=== PATIENT | female | born 1975 | race Caucasian/White ===

== ENCOUNTER 2017-11-23 02:14 | Emergency (ER) | payer MEDICARE ==
[~2017-11-23] VITALS: Ht 165.1 cm; Wt 68.7 kg
[2017-11-23] MEDS ORDERED: LORA0.5T PO (02:43)
[2017-11-23] MEDS ORDERED: PRAZ2CAP2 PO (02:43)
[2017-11-23] MEDS ORDERED: TRAZ150T62 PO (02:43)
[2017-11-23] MEDS ORDERED: HYDR200T72 PO (02:43)
[2017-11-23 03:00] LABS: HCG UR SG 1.035 (1.003-1.030)
[2017-11-23 03:04] LABS: CULTURE INDICATED? YES; MICROSCOPIC INDICATED
[2017-11-23 03:30] VITALS: BP 120/75
== END 2017-11-23 04:00 | disposition home or self-care (01) ==
LOC: ED 03:50
DX: N30.00 Acute cystitis without hematuria (principal)
CPT/HCPCS: 81001; 81025; 87086; 99284

== ENCOUNTER 2017-11-29 18:42 | Emergency (ER) | payer MEDICARE ==
[~2017-11-29] VITALS: Ht 162.6 cm; Wt 71.9 kg
[~2017-11-29 18:42] MED LIST: HYDR200T72 PO; LORA0.5T PO; PRAZ2CAP2 PO; TRAZ150T62 PO
[2017-11-29 19:41] LABS: MICROSCOPIC INDICATED
[2017-11-29 19:42] LABS: CULTURE INDICATED? YES
[2017-11-29 19:42] LABS: BASOPHILS # (AUTO) 0.04 x10^3/uL (0-0.1); BASOPHILS % (AUTO) 1 % (0-1); EOSINOPHILS % (AUTO) 0 % (1-7); LYMPHOCYTES # (AUTO) 2.26 x10^3/uL (1-3.4); LYMPHOCYTES % (AUTO) 24 % (22-44); MD NO; MEAN CORPUSCULAR HEMOGLOBIN 34.5 pg (27.0-34.8); MEAN CORPUSCULAR HGB CONC 34.2 g/dL (32.4-35.8); MEAN CORPUSCULAR VOLUME 100.8 fL (80-100); MEAN PLATELET VOLUME 9.1 fL (7.4-10.4); MONOCYTES % (AUTO) 5 % (2-9); NEUTROPHILS # (AUTO) 6.64 x10^3/uL (1.8-6.8); NEUTROPHILS % (AUTO) 70 % (42-75); PLATELET COUNT 324 x10^3/uL (130-400); RED BLOOD COUNT 3.73 x10^6/uL (3.82-5.3); RED CELL DISTRIBUTION WIDTH 14.1 % (9.6-15.2)
[2017-11-29 19:53] LABS: ALANINE AMINOTRANSFERASE 31 U/L (12-78); ALBUMIN 3.4 g/dL (3.4-5.0); ANION GAP 6 mmol/L (5-15); CALCIUM 8.7 mg/dL (8.5-10.1); CHLORIDE 115 mmol/L (98-107); CREATININE 0.96 mg/dL (0.55-1.02)
[2017-11-29 19:55] LABS: ALKALINE PHOSPHATASE 92 U/L (45-117); BILIRUBIN,TOTAL 0.3 mg/dL (0.2-1.0); TOTAL PROTEIN 6.3 g/dL (6.4-8.2)
[2017-11-29 20:30] VITALS: BP 113/69
== END 2017-11-29 20:53 | disposition home or self-care (01) ==
LOC: ED 19:02
DX: R53.1 Weakness (principal); M79.661 Pain in right lower leg
CPT/HCPCS: 36415; 80053; 81001; 85025; 87086; 87147; 93005; 99285